=== PATIENT | female | born 1995 | race Caucasian/White ===

== ENCOUNTER 2018-10-15 20:40 | Observation (INO) | payer OTHER ==
[~2018-10-15] VITALS: Ht 157.5 cm; Wt 96.2 kg
[2018-10-15 22:14] LABS: APPEARANCE,URINE CLEAR (CLEAR); BILIRUBIN,URINE NEGATIVE (NEGATIVE); GLUCOSE, URINE (UA) NEGATIVE (NEGATIVE); KETONES,URINE NEGATIVE (NEGATIVE); LEUKOCYTE ESTERASE ,URINE TRACE (NEGATIVE); NITRATE,URINE NEGATIVE (NEGATIVE); OCCULT BLOOD,URINE NEGATIVE (NEGATIVE); PH,URINE 7.5 (5.0-8.0); PROTEIN,URINE NEGATIVE (NEGATIVE); UROBILINOGEN,URINE 0.2 mg/dL (<=1.0)
[2018-10-15 22:25] LABS: BACTERIA,URINE Few /HPF (None Seen); RBC,URINE 0-2 /HPF (0-2); SQUAMOUS EPITHELIAL CELL,UR Many /LPF (None Seen)
[2018-10-15 22:37] VITALS: BP 116/68
== END 2018-10-15 23:05 | disposition home or self-care (01) ==
LOC: 4S 20:40
PROVIDERS: ADMIT Obstetrics & Gynecology; ATTEND Obstetrics & Gynecology
DX: O99.89 Other specified diseases and conditions complicating pregnancy, childbirth and the puerperium (principal); M54.9 Dorsalgia, unspecified; O26.893 Other specified pregnancy related conditions, third trimester; R10.30 Lower abdominal pain, unspecified; Z3A.29 29 weeks gestation of pregnancy
CPT/HCPCS: 80307 ×8; 81001; 87086; G0378

== ENCOUNTER 2020-10-28 09:35 | Emergency (ER) | payer OTHER ==
[~2020-10-28] VITALS: Ht 160 cm; Wt 79.5 kg
[2020-10-28 09:40] VITALS: BP 124/82
[2020-10-28] MEDS ORDERED: ACET-2247 PO (10:22)
[2020-10-28] MEDS ORDERED: IBUP200C5 PO (10:22)
[2020-10-28 10:31] LABS: COVID AG,FIA SOURCE NASAL SWAB
== END 2020-10-28 11:54 | disposition left against medical advice (07) ==
LOC: EMS 09:40
DX: M26.629 Arthralgia of temporomandibular joint, unspecified side (principal); R51.9 Headache, unspecified; J45.909 Unspecified asthma, uncomplicated; F12.90 Cannabis use, unspecified, uncomplicated; Z20.822 Contact with and (suspected) exposure to COVID-19
CPT/HCPCS: 87426; 99283